=== PATIENT | male | born 1980 | race African-American/Black ===

== ENCOUNTER 2025-07-15 19:57 | Emergency (ER) | payer SELFPAY ==
[~2025-07-15] VITALS: Ht 170.2 cm; Wt 66.4 kg
[2025-07-16] MEDS: IBUPROFEN 600 MG TAB PO ONE (00:45)
[2025-07-16 01:26] VITALS: BP 137/75; TEMP 97.8; O2SAT 99
== END 2025-07-16 01:33 | disposition home or self-care (01) ==
LOC: M ED 19:57
DX: S43.402A Unspecified sprain of left shoulder joint, initial encounter (principal); V13.4XXA Pedal cycle driver injured in collision with car, pick-up truck or van in traffic accident, initial encounter; D57.3 Sickle-cell trait; F17.200 Nicotine dependence, unspecified, uncomplicated; Y92.410 Unspecified street and highway as the place of occurrence of the external cause; Y93.89 Activity, other specified; Y99.9 Unspecified external cause status